=== PATIENT | male | born 1980 | race Caucasian/White ===

== ENCOUNTER 2017-12-09 12:48 | Day surgery (SDC) | payer BC, OTHER ==
[2017-12-08 16:06] VITALS: BMI 49.9
[2017-12-09 15:13] VITALS: TEMP 97.9
[2017-12-09 15:51] VITALS: BP 166/69; PULSE 82
== END 2017-12-09 16:15 | disposition home or self-care (01) ==
LOC: JASU-ENDO 12:48
PROVIDERS: ATTEND Surgery
PROC: 0DJ08ZZ Inspection of Upper Intestinal Tract, Via Natural or Artificial Opening Endoscopic (ICD-10-PCS; principal; 2017-12-09 14:00)
DX: E66.01 Morbid (severe) obesity due to excess calories (principal); Z01.818 Encounter for other preprocedural examination

== ENCOUNTER 2018-03-01 09:10 | Inpatient (IN) | payer BC, OTHER ==
[~2018-03-01 09:10] MED LIST: BUPIVACAINE HCL/PF (5 MG/ML) 30 ML VIAL IJ ONE; ceFAZolin SODIUM 1 GM VIAL IVPB ONE
[2018-03-01 10:23] VITALS: BMI 49.9
[2018-03-01] MEDS ORDERED: MIDAZOLAM HCL 2 MG/2 ML SINGLE DOSE VIAL ONE (12:23)
[2018-03-01] MEDS ORDERED: BUPIVACAINE HCL/PF 0.5% (5MG/ML) 10 ML VIAL ONE (12:30)
--- NOTE | 2018-03-01 12:39 | HP ---
History & Physical Update - History History: No Change - Physical Physical: No Change - Assessment Assessment: No Change - Plan Plan: No Change (no change since visit on 02/16/18) <Sharri Mariscal - Last Filed: 03/01/18 12:38> - Plan Plan: No Change (Laparoscopic possible open vertical sleeve gastrectomy, possible wedge liver biopsy, EGD) <Shane Mayo - Last Filed: 03/01/18 15:17>
[2018-03-01] MEDS ORDERED: LIDOCAINE HCL/PF 2% SDV 5ML VIAL ONE (12:42)
[2018-03-01] MEDS ORDERED: DEXAMETHASONE SOD PHOSPHATE 4 MG/1 ML VIAL ONE (12:42)
[2018-03-01] MEDS ORDERED: ONDANSETRON 4 MG/2 ML VIAL ONE ×2 (12:42→15:36)
[2018-03-01] MEDS ORDERED: PROPOFOL 20 ML ONE ×2 (12:43)
[2018-03-01] MEDS ORDERED: ROCURONIUM BROMIDE 50 MG/5 ML VIAL ONE ×2 (12:45)
[2018-03-01] MEDS ORDERED: SUCCINYLCHOLINE CHLORIDE 200 MG/10 ML VIAL ONE (12:46)
[2018-03-01] MEDS ORDERED: ceFAZolin SODIUM 1 GM VIAL ONE (12:47)
[2018-03-01] MEDS ORDERED: fentaNYL CITRATE 250 MCG/5 ML VIAL ONE (12:48)
[2018-03-01] MEDS ORDERED: ceFAZolin SODIUM 1 GM VIAL IVPB ONE (12:57)
[2018-03-01] MEDS ORDERED: NEOSTIGMINE METHYLSULFATE 0.5 MG/ML - 10 ML MDV ONE (13:44)
[2018-03-01] MEDS ORDERED: GLYCOPYRROLATE 0.2 MG/1 ML VIAL ONE (13:46)
[2018-03-01] MEDS ORDERED: KETOROLAC TROMETHAMINE 30 MG/1 ML VIAL ONE (13:46)
[2018-03-01] MEDS ORDERED: BUPIVACAINE HCL/PF (5 MG/ML) 30 ML VIAL IJ ONE (14:58)
[2018-03-01] MEDS ORDERED: SODIUM CHLORIDE 1,000 ML IV SCH (15:15)
[2018-03-01] MEDS: ACETAMINOPHEN 1000 MG/100 ML VIAL (NON FORMULARY) IVPB SCH ×2 (15:15→20:37)
--- NOTE | 2018-03-01 15:16 | OP ---
Operative Note - Note: Operative Date: 03/01/18 Pre-Operative Diagnosis: Morbid obesity Operation: Laparoscopic vertical sleeve gastrectomy, wedge liver biopsy, EGD Post-Operative Diagnosis: Other (Morbid obesity, hepatomegaly) Surgeon: Shane Mayo Welcome Wagon Host/Hostess: Sharri Mariscal Anesthesia: General Specimens Removed: Greater curvature of stomach. Liver biopsy Estimated Blood Loss (mls): 100 Drains & Tubes with Location: 36 Fr Bougie Operative Report Dictated: Yes
[2018-03-01] MEDS: ONDANSETRON 4 MG/2 ML VIAL IVPUSH SCH ×3 (15:32→22:08)
[2018-03-01] MEDS: METOCLOPRAMIDE HCL INJECTION 10 MG/2 ML VIAL IVPUSH SCH ×2 (15:35→20:37)
[2018-03-01] MEDS ORDERED: METOCLOPRAMIDE HCL INJECTION 10 MG/2 ML VIAL ONE (15:36)
[2018-03-01] MEDS ORDERED: FAMOTIDINE 20 MG/50 ML IVPB 20 MG/50 ML MG IVPB ONE (15:36)
[2018-03-01] MEDS ORDERED: ACETAMINOPHEN INJECTION 100 ML IVPB ONE (15:37)
[2018-03-01] MEDS ORDERED: FAMOTIDINE 20 MG PREMIXED IVPB IVPB ONE (15:50)
[2018-03-01 16:18] LABS: HEMATOCRIT 40.7 % (35.4-49); HEMOGLOBIN 13.6 GM/dL (11.7-16.9); MCH 28.9 pg (25.7-33.7); MCHC 33.3 g/dl (32.0-35.9); MEAN CELL VOLUME 86.6 fl (80-96); MEAN PLT VOLUME 8.4 fl (7.5-11.1); PLATELET COUNT 384 K/MM3 (134-434); RDW 14.3 % (11.9-15.9); WHITE BLOOD COUNT 18.4 K/mm3 (4.0-10.0)
--- NOTE | 2018-03-01 16:40 | SURG ---
Surgery Center Medical Director Note Center Medical Director: Sharri Mariscal PA-C Date of Service: 03/01/18 Diagnosis: Morbid obesity Procedure: Laparoscopic vertical sleeve gastrectomy, wedge liver biopsy, EGD I was present for the entirety of the operative procedure. For further detail, please refer to operative report. Visit type - Case Type Case Type: Scheduled - Emergency Emergency Visit: No - New patient This patient is new to me today: Yes Date on this admission: 03/01/18
[2018-03-01 16:58] LABS: ALBUMIN 3.5 g/dl (3.4-5.0); ALK PHOS 64 U/L (45-117); ANION GAP 12 MMOL/L (8-16); BILIRUBIN,TOTAL 0.4 mg/dL (0.2-1.0); BLOOD UREA NITROGEN 9 mg/dL (7-18); CALCIUM 8.6 mg/dL (8.5-10.1); CHLORIDE 103 mmol/L (98-107); CO2 24 mmol/L (21-32); GLUCOSE,RANDOM 150 mg/dL (74-106); POTASSIUM 4.3 mmol/L (3.5-5.1); SGOT/AST 75 U/L (15-37); SGPT/ALT 92 U/L (12-78); SODIUM 139 mmol/L (136-145); TOT PROT 6.8 g/dl (6.4-8.2)
--- NOTE | 2018-03-01 17:56 | SPEC ---
DATE OF OPERATION: 03/01/2018 SURGEON: Shane Mayo MD SLP: CORTNEY Mathew PREOPERATIVE DIAGNOSES: 1. Morbid obesity. 2. Body mass index of 49.9. 3. Obstructive sleep apnea. POSTOPERATIVE DIAGNOSES: 1. Morbid obesity. 2. Body mass index of 49.9. 3. Obstructive sleep apnea. 4. Hepatomegaly. PROCEDURE: 1. Laparoscopic vertical sleeve gastrectomy. 2. Laparoscopic wedge liver biopsy and upper endoscopy/esophagogastroduodenoscopy. SPECIMEN: 1. Greater curvature of the stomach. 2. Wedge liver biopsy. ESTIMATED BLOOD LOSS: 100 mL. DRAINS: None. ANESTHESIA: GET. BOUGIE SIZE: A 36-[place]. REASON FOR PROCEDURE: This is a 37-year-old male who presents for weight loss options. After describing different options, he decided to proceed with a laparoscopic possible open vertical sleeve gastrectomy, possible wedge liver biopsy, and upper endoscopy. RISKS AND BENEFITS: After describing the different options for weight loss management, the patient decided to proceed with a laparoscopic, possible open vertical sleeve gastrectomy. The patient was seen by the respective subspecialties and cleared for surgery. The risks and benefits of the procedure were explained. These included bleeding, infection, hernia, NV, DVT, PE, injury to surrounding structures including the liver, colon, bowel, spleen, esophagus, vessel injury, nerve injury, weight regain, gastric leak, staple line leak, sleeve leak, obstruction, vitamin deficiency, hair loss and as some of the possible complications. The patient understood and signed informed consent. DESCRIPTION OF PROCEDURE: The patient was placed supine on the operating room table. The patient underwent general endotracheal intubation. The arms were brought out at 90 degrees and secured. A footboard was placed and the legs were secured laterally with padding. The abdomen was prepped and draped in the usual sterile fashion. A timeout was performed. An incision was made in the left upper quadrant and a Veress needle inserted. Pneumoperitoneum was established. Subsequently, the Veress needle was removed and a 5-mm trocar was placed under direct visualization with the laparoscope. The laparoscopic camera was then inserted and inspection of the abdominal cavity was performed. An incision was then made in the supraumbilical area and a 15-mm trocar was placed under direct visualization. A 5-mm trocar was then placed in the right upper quadrant and a 5-mm trocar was placed below the left subcostal margin. A stab wound was made in the subxiphoid area and a Sada clamp inserted and removed to dilate the tract. A Priscila liver retractor was inserted. The post was secured at the bedside by the nursing staff. The patient was placed in steep reverse Trendelenburg position and the Priscila liver retractor was used to secure the liver towards the anterior abdominal wall. The pylorus was identified and 6 cm proximal to it, the lesser sac was entered using the LigaSure device. All lateral attachments to the greater curvature of the stomach, including the short gastric vessels, were ligated using the LigaSure device toward the gastrosplenic and gastrophrenic ligaments. Once this was done in its entirety, it was confirmed that all tubes within the nasal or oropharyngeal cavity, including a temperature probe, was removed by Anesthesia. The bougie was then inserted by Anesthesia. Transection of the stomach was then begun staying adjacent to the bougie but away from the angularis. Transection of the stomach was performed near the portion of the stomach where the lesser sac was entered. Two laparoscopic Endo-CHRIS black kamila were used at this location. Laparoscopic Endo CHRIS purple staple loads were then used for the remainder of the transection until the greater curvature of the stomach was fully transected. This was done staying close to the bougie. Care was taken to stay away from the angle of His cephalad. The staple line was then inspected. Hemostasis was identified. A leak test was then performed. It was clamped distally to the staple line. Irrigation solution was placed in the left upper quadrant and air was insufflated by Anesthesia into the sleeve. No leaks were identified. No obstruction was identified. This was done through the entirety of the staple line. In addition, an upper endoscopy was performed. The endoscope was placed into the patients mouth and the entirety of the esophagus, GE junction, gastric pouch and staple line were inspected. No obstruction or leak was noted. The stomach was suctioned and the endoscope removed fully intact. At this point, the irrigation solution was suctioned and again, hemostasis was noted. A wedge liver biopsy was then performed. The left lobe of the liver was identified and a portion of the edge was grasped. Using electrocautery, a wedge of the liver was excised. This was removed and sent off the field as specimen. Hemostasis at the site of the wedge liver biopsy was attained using electrocautery. The 15-mm supraumbilical trocar was then removed and the greater curvature specimen removed from the site using a sponge stick mcnamara. The specimen was inspected and a Veress needle inserted. The specimen insufflated adequately and no leak was identified. The staple line was noted to be intact. A Jose-Brian device was then used to close the fascia with a 0 Vicryl suture at the site. Again, hemostasis was noted. The Priscila liver retractor was then removed under direct visualization. Pneumoperitoneum was desufflated and the fascial sutures were secured. Hemostasis was noted at all incision sites and Marcaine was injected at all incision sites. All incision sites were closed using 4-0 Biosyn. Sterile dressings were applied. The patient tolerated the procedure well and was transferred to the recovery room in stable condition. The patient was transferred to telemetry for further monitoring. Benson [id number]
[2018-03-01] MEDS: morphine SULFATE 4 MG/ML VIAL IVPUSH PRN (18:27)
[2018-03-01] MEDS: ENOXAPARIN NA (PORCINE) 40 MG/0.4 ML DISP.SYRIN SQ SCH (22:08)
[2018-03-01] MEDS: FAMOTIDINE 20 MG/50 ML IVPB 20 MG/50 ML MG IVPB SCH (22:09)
[2018-03-02] MEDS: ONDANSETRON 4 MG/2 ML VIAL IVPUSH SCH ×4 (01:20→14:42)
[2018-03-02] MEDS: morphine SULFATE 4 MG/ML VIAL IVPUSH PRN ×2 (01:41→08:22)
[2018-03-02] MEDS: METOCLOPRAMIDE HCL INJECTION 10 MG/2 ML VIAL IVPUSH SCH ×2 (02:25→08:23)
[2018-03-02] MEDS: ACETAMINOPHEN 1000 MG/100 ML VIAL (NON FORMULARY) IVPB SCH ×2 (02:25→09:53)
[2018-03-02 07:23] LABS: HEMOGLOBIN 12.9 GM/dL (11.7-16.9); MCH 28.6 pg (25.7-33.7); MEAN CELL VOLUME 86.7 fl (80-96); MEAN PLT VOLUME 8.3 fl (7.5-11.1); PLATELET COUNT 339 K/MM3 (134-434); RBC 4.49 M/mm3 (4.00-5.60); RDW 14.2 % (11.9-15.9); WHITE BLOOD COUNT 13.3 K/mm3 (4.0-10.0)
[2018-03-02 07:56] LABS: CHLORIDE 102 mmol/L (98-107); POTASSIUM 4.4 mmol/L (3.5-5.1); SODIUM 136 mmol/L (136-145)
[2018-03-02 08:01] LABS: ALBUMIN 3.3 g/dl (3.4-5.0); ALK PHOS 57 U/L (45-117); ANION GAP 6 MMOL/L (8-16); BILIRUBIN,TOTAL 0.4 mg/dL (0.2-1.0); BLOOD UREA NITROGEN 6 mg/dL (7-18); CALCIUM 8.1 mg/dL (8.5-10.1); CO2 28 mmol/L (21-32); CREATININE 0.9 mg/dL (0.7-1.3); GLUCOSE,RANDOM 103 mg/dL (74-106); SGOT/AST 94 U/L (15-37); SGPT/ALT 119 U/L (12-78); TOT PROT 6.6 g/dl (6.4-8.2)
--- NOTE | 2018-03-02 08:25 | PN ---
Addendum entered and electronically signed by Sharri Mariscal PA 03/02/18 12 :52: No evidence of extravasation of contrast, gastric leak or outlet obstruction. Start BS1D and d/c planning for tonight vs tomorrow morning if tolerated. Original Note: Progress Note (short form) - Note Progress Note: surgery POD #1 lap gastric sleeve patient seen and examined at bedside. Patient has been oob, ambulating and voiding. He c/o lots of gas and is belching a lot but is not passing gas from below. His pain is controlled and he denies any CP, SOB , N/V/D fever or chills. Vital Signs Temp 98.5 F 03/02/18 06:00 Pulse 69 03/02/18 06:00 Resp 17 03/02/18 06:00 BP 147/86 03/02/18 06:00 Pulse Ox 99 03/01/18 21:00 Intake & Output 03/01/18 03/01/18 03/02/18 11:59 23:59 11:59 Intake Total 2009 1800 Output Total 780 450 Balance 1230 1350 Weight 300 lb 302 lb 3.2 oz Intake: IV 1860 1800 Normal Saline - 1,000 ml 150 1800 @ 150 mls/hr IV ASDIR STARLA Rx#:[id number] Saline Lock 10 IVPB 150 Oral 0 Output: Urine 680 450 Void 680 450 Estimated Blood Loss 100 Other: Voiding Method Urinal # Unmeasured Voids Void 1 Bowel Movement Yes: before surgery No Height 5 ft 5 in Body Mass Index (BMI) 49.9 Weight Measurement Method Stated by Patient Standing Scale CBC, BMP 03/02/18 06:30 03/02/18 06:30 PE: A&Ox3, NAD unlabored resp on RA ABD: obese, soft, ND with mild ttp over epigastrum and RUQ appropriate to status , incision c/d/i with surrounding tissue intact and no erythema, gross edema, collection of d/c. b/L LE compartments soft, supple and non-tender with +2 pedal pulses. <Sharri Mariscal - Last Filed: 03/02/18 08:19> - Note Progress Note: Agree POD 1 Pain controlled AVSS Abd soft UGI: no leak/obstruction Clears Discharge home <Shane Myao - Last Filed: 03/02/18 14:26> Problem List - Problems (1) S/P laparoscopic sleeve gastrectomy Assessment/Plan: POD #1 doing well 1) Upper GI study this morning if no leak will start BS1D 2) OOB as tolerated 3) encourage IS 4) pain control 5) D/c planning for later today if tolerating diet and pain controlled. Code(s): Z98.84 - BARIATRIC SURGERY STATUS <Sharri Mariscal - Last Filed: 03/02/18 08:19>
[2018-03-02] MEDS: FAMOTIDINE 20 MG/50 ML IVPB 20 MG/50 ML MG IVPB SCH (09:54)
--- NOTE | 2018-03-02 10:44 | PN ---
Progress Note, Physician Chief Complaint: s/p vertical gastric sleeve under general anesthesia History of Present Illness: post op day one - Current Medication List Current Medications: Active Medications Enoxaparin Sodium (Lovenox -) 40 mg SQ BID [facility] Last Admin: 03/01/18 22:08 Dose: 40 mg Fentanyl (Sublimaze Injection -) 50 mcg IVPUSH [id number] PRN PRN Reason: PAIN-PACU ORDER X 4 DOSES ONLY Last Admin: 03/01/18 16:15 Dose: 50 mcg Famotidine/Sodium Chloride (Pepcid 20 Mg Premixed Ivpb -) 20 mg in 50 mls @ 100 mls/hr IVPB BID [facility] Last Admin: 03/02/18 09:54 Dose: 100 mls/hr Sodium Chloride (Normal Saline -) 1,000 mls @ 150 mls/hr IV ASDIR [facility] Last Admin: 03/01/18 15:15 Dose: 150 mls/hr Metoclopramide HCl (Reglan Injection -) 10 mg IVPUSH Q6H-IV [facility] Last Admin: 03/02/18 08:23 Dose: 10 mg Morphine Sulfate (Morphine Sulfate) 4 mg IVPUSH Q4H PRN PRN Reason: PAIN LEVEL 6-10 Last Admin: 03/02/18 08:22 Dose: 4 mg Ondansetron HCl (Zofran Injection) 4 mg IVPUSH Q4H-IV [facility] Last Admin: 03/02/18 06:25 Dose: 4 mg - Objective Vital Signs: Vital Signs Temperature 99.5 F 03/02/18 10:00 Pulse Rate 89 03/02/18 10:00 Respiratory Rate 16 03/02/18 10:00 Blood Pressure 134/68 03/02/18 10:00 O2 Sat by Pulse Oximetry (%) 99 03/02/18 09:00 Constitutional: Yes: Well Nourished Cardiovascular: Yes: WNL Respiratory: Yes: WNL Gastrointestinal: Yes: WNL Labs: CBC, BMP 03/02/18 06:30 03/02/18 06:30 Assessment/Plan some nausea this morning better with zofran, pain controlled, no adverse effect of anesthetic. AV dept of anesthesiology will sign off care at this time
[2018-03-02] MEDS ORDERED: oxyCODONE HCL 5 MG TABLET PO PRN (12:50)
[2018-03-02] MEDS ORDERED: SODIUM CHLORIDE 1,000 ML IV SCH (13:00)
[2018-03-02] MEDS: ENOXAPARIN NA (PORCINE) 40 MG/0.4 ML DISP.SYRIN SQ SCH (14:43)
[2018-03-02 18:15] VITALS: BP 146/77; PULSE 81; TEMP 98.8
--- NOTE | 2018-03-03 16:28 | PATH ---
Surgical Pathology Report Patient Name: TAYE PAL Med. Rec. #: [id number] /Age/Gender: 1980 (Age: 37) / M Account: [id number] Location: 4 W TELEMETRY U Taken: 03/01/2018 Received: 03/02/2018 Reported: 03/03/2018 Physicians: Shane Mayo M.D. Specimen(s) Received A: LIVER BIOPSY B: GREATER CURVATURE STOMACH Clinical History Morbid obesity Final Diagnosis A. LIVER, BIOPSY: LIVER TISSUE WITH MILD STEATOSIS (~10%). TRICHROME STAIN SHOWS NO INCREASED FIBROSIS. IRON STAIN IS NEGATIVE FOR SIDEROSIS. Comment: The biopsy is subcapsular with areas of thermal artifact. B. STOMACH, GREATER CURVATURE, LAPAROSCOPIC VERTICAL SLEEVE GASTRECTOMY: PORTION OF STOMACH WITH CHRONIC GASTRITIS. IMMUNOHISTOCHEMICAL STAIN IS POSITIVE FOR H. PYLORI ORGANISMS, Electronically Signed Hanna Bond M.D. Gross Description A. Received in formalin labeled "liver biopsy," is a 1.5 x 0.5 x 0.4 cm mcclain portion of soft tissue, consistent with a liver biopsy. The specimen is bisected and entirely submitted in one cassette. B. Received in formalin, labeled "greater curvature of stomach," is a 132 gram, 20.0 x 4.0 x 3.5 cm. portion of stomach with a stapled margin of resection. The serosa is mcclain-viramontes with minimal attached fat. The mucosa is mcclain-pink with normal folds. No mucosal masses are identified. Hardware Installer sections are submitted in one cassette. /03/02/2018 saudi03/02/2018
== END 2018-03-02 18:02 | disposition home or self-care (01) | DRG 621 ==
LOC: JSAMEDAYSX 09:10 → EDSTATUS 12:00 → J4W 17:41
PROVIDERS: ADMIT Surgery; ATTEND Surgery
PROC: 0DB64Z3 Excision of Stomach, Percutaneous Endoscopic Approach, Vertical (ICD-10-PCS; principal; 2018-03-01 12:00)
PROC: 0FB24ZX Excision of Left Lobe Liver, Percutaneous Endoscopic Approach, Diagnostic (ICD-10-PCS; 2018-03-01 12:00)
PROC: 0DJ08ZZ Inspection of Upper Intestinal Tract, Via Natural or Artificial Opening Endoscopic (ICD-10-PCS; 2018-03-01 12:00)
DX: E66.01 Morbid (severe) obesity due to excess calories (principal); Z68.42 Body mass index [BMI] 45.0-49.9, adult; G47.33 Obstructive sleep apnea (adult) (pediatric); R16.0 Hepatomegaly, not elsewhere classified; K76.0 Fatty (change of) liver, not elsewhere classified
CPT/HCPCS: 36415; 74241-TC-FY; 80053; 85027; 86850; 86900; 86901; 88305-TC; 94010; 94760; J0131; J7030